=== PATIENT | male | born 1985 | race Caucasian/White ===

== ENCOUNTER 2017-07-22 00:02 | Emergency (ER) | payer OTHER ==
[~2017-07-22] VITALS: Ht 188 cm; Wt 145.0 kg
[2017-07-22 00:37] VITALS: Ht 188 cm; Wt 145.0 kg
== END 2017-07-22 05:30 | disposition left against medical advice (07) ==
LOC: FTE 00:02
DX: Z53.21 Procedure and treatment not carried out due to patient leaving prior to being seen by health care provider (principal)

== ENCOUNTER 2018-05-12 06:24 | Emergency (ER) | END 2018-05-12 08:13 | disposition home or self-care (01) ==